=== PATIENT | male | born 1960 | race Caucasian/White ===

== ENCOUNTER 2016-10-07 16:17 | Emergency (ER) | payer OTHER ==
[2016-10-07 17:42] VITALS: BP 149/66; PULSE 79; RESP 18; TEMP 98.1; O2SAT 97
[2016-10-07] MEDS ORDERED: LISI40TA PO (17:42)
[2016-10-07] MEDS ORDERED: LURA40 PO (17:42)
[2016-10-07] MEDS ORDERED: ASPI-110 PO (17:42)
[2016-10-07] MEDS ORDERED: ESCI20TA PO (17:42)
[2016-10-07] MEDS ORDERED: BUSP30TA PO (17:42)
[2016-10-07] MEDS ORDERED: ALFU10TA2 PO (17:42)
[2016-10-07] MEDS ORDERED: PLAV75TA29 PO (17:42)
[2016-10-07] MEDS ORDERED: DOCU250C PO (17:42)
[2016-10-07] MEDS ORDERED: CYCL1TAB29 PO (17:42)
[2016-10-07] MEDS ORDERED: WELLTAB39 PO (17:42)
[2016-10-07] MEDS ORDERED: GABA600T PO (17:42)
[2016-10-07] MEDS ORDERED: HYDR12.56 PO (17:42)
[2016-10-07] MEDS ORDERED: ATOR40TA16 PO (17:42)
[2016-10-07] MEDS ORDERED: DOXY100C PO (18:48)
[2016-10-07] MEDS ORDERED: PRED20 PO (18:48)
[2016-10-07] MEDS ORDERED: DIAZEPAM 5 MG TAB PO ONE (19:00)
[2016-10-07] MEDS ORDERED: NICOTINE 14 MG/24 HR PATCH T-DERMAL ONE (19:00)
[2016-10-07] MEDS ORDERED: predniSONE 20 MG TAB PO ONE (19:00)
[2016-10-07] MEDS ORDERED: guaiFENesin E.R. 600 MG TAB PO ONE (19:00)
--- NOTE | 2016-10-07 19:00 | PD ---
HPI Chief Complaint: Psychiatric Symptoms Time Seen by Provider: 18:40 Travel History International Travel<30 days: No Contact w/Intl Traveler<30days: No Traveled to known affect area: No History of Present Illness HPI This is a 56-year-old male who presents under Gar act initiated by an outside emergency room physician. The patient was seen in the hospital in [place] yesterday for evaluation of a cough. He told the physician that he has been having suicidal thoughts, specifically he has had thoughts of walking in front of a truck. For this reason he was Gar acted. He was medically cleared at this facility then transferred here, accepted by psychiatrist Dr. Rodriguez. The patient reports that he has had a cough for 3 weeks. He reports a history of asthma, possibly COPD, tobacco use. I reviewed his records from the outside hospital. His lab work was notable for positive benzodiazepine/cannabinoids on drug screen, potassium was initially 2.9 yesterday, repeat potassium after treatment was 3.7 today. Chest x-ray revealed no pneumonia. He was given a dose of Levaquin this morning. He reports that he was given a shot of steroids yesterday. He was given breathing treatments. He is requesting currently nicotine patch, something help him sleep, nebulizer treatment. No other complaints. [facility] Social History Tobacco Use: Yes Substance Use: Yes Allergies-Medications (Allergen,Severity, Reaction): Coded Allergies: No Known Allergies (Unverified , 10/07/16) Reported Meds & Prescriptions Reported Meds & Active Scripts Active Prednisone 20 Mg Tab 20 Mg PO BID 5 Days Doxycycline Hyclate 100 Mg Cap 100 Mg PO BID Reported Alfuzosin ER 24 HR 10 Mg Tab 10 Mg PO DAILY Buspirone (Buspirone HCl) 30 Mg Tab 30 Mg PO BID Wellbutrin Xl 24 HR (Bupropion HCl) 300 Mg Tab 300 Mg PO DAILY Plavix (Clopidogrel Bisulfate) 75 Mg Tab 75 Mg PO DAILY Lisinopril 40 Mg Tab 40 Mg PO DAILY Hydrochlorothiazide 12.5 Mg Tab 12.5 Mg PO DAILY Escitalopram (Escitalopram Oxalate) 20 Mg Tab 20 Mg PO DAILY Aspirin 81 (Aspirin) 81 Mg Tabdr 81 Mg PO DAILY Atorvastatin (Atorvastatin Calcium) 40 Mg Tab 40 Mg PO HS Flexeril (Cyclobenzaprine HCl) 10 Mg Tab 10 Mg PO TID Gabapentin 600 Mg Tab 600 Mg PO TID Latuda (Lurasidone) 40 Mg Tab 40 Mg PO DAILY Docusate Sodium 250 Mg Cap 250 Mg PO BID Review of Systems Except as stated in HPI: all other systems reviewed are Neg Physical Exam Narrative GENERAL: Well-developed well-nourished male in no acute distress SKIN: Warm and dry. HEAD: Atraumatic. Normocephalic. EYES: Pupils equal and round. No scleral icterus. No injection or drainage. ENT: No nasal bleeding or discharge. Mucous membranes pink and moist. NECK: Trachea midline. No JVD. CARDIOVASCULAR: Regular rate and rhythm. No murmur appreciated. RESPIRATORY: No accessory muscle use. Coarse breath sounds with wheezing bilaterally. GASTROINTESTINAL: Abdomen soft, non-tender, nondistended. Hepatic and splenic margins not palpable. MUSCULOSKELETAL: No obvious deformities. No clubbing. No cyanosis. No edema. NEUROLOGICAL: Awake and alert. No obvious cranial nerve deficits. Motor grossly within normal limits. Normal speech. PSYCHIATRIC: Appropriate mood and affect; insight and judgment normal. Data Data Last Documented VS Vital Signs Date Time Temp Pulse Resp B/P Pulse Ox O2 Delivery O2 Flow Rate FiO2 10/07/16 17:42 98.1 79 18 149/66 97 Room Air Orders Diet Regular Basic (10/07/16 Dinner) Psych Screen (10/07/16 17:01) MDM Medical Decision Making Medical Screen Exam Complete: Yes Emergency Medical Condition: Yes Medical Record Reviewed: Yes Differential Diagnosis Depression, schizophrenia, bipolar disorder, acute psychosis, adjustment reaction, substance induced mood disorder Narrative Course This is a patient was seen at a hospital in [place] for a cough, he was Gar acted and transferred here for psychiatric evaluation. He was previously medically cleared. On examination he has coarse breath sounds with wheezing bilaterally. He has had a cough and wheezing for 3 weeks. He had a chest x- ray at the outside facility which was negative for pneumonia. He was given a dose of Levaquin this morning. There are no obvious prescriptions from this outside facility. Therefore the patient will be given prescriptions for doxycycline and prednisone. He will be given a dose of prednisone as well as DuoNeb therapy currently. He'll be given a dose of Valium and a nicotine patch. Mental health screening discussed with the patient. Psychiatric screen ordered. He is medically cleared for psychiatric disposition. Diagnosis Primary Impression: Bronchitis Additional Impression: Medical clearance for psychiatric admission Scripts Prednisone 20 Mg Tab20 Mg PO BID 5 Days Ref 0 Prov:Tc Howe MD 10/07/16 Doxycycline Hyclate 100 Mg [id number] Mg PO BID #20 CAP Ref 0 Prov:Tc Howe MD 10/07/16 Rubén Lal Oct 07, 2016 18:59
[2016-10-07] MEDS: RESP: ALBUTEROL 2.5 MG/IPRATROPIUM 0.5 MG NEB (SCH) INH (20:30)
[2016-10-07 22:14] VITALS: BP 110/58; PULSE 80; RESP 17; O2SAT 98
[2016-10-08 02:00] VITALS: BP 125/64; PULSE 61; RESP 17; O2SAT 95
--- NOTE | 2016-10-08 11:32 | PD.PSY.CON ---
Provisional Diagnosis Admission Date [place] I. Adjustment disorder with depressed mood and anxiety, benzodiazepine dependence [place] II. Deferred [place] III. CVA History of Present Illness Service Psychiatry Consult Requested By Primary Care Physician No Primary Care Physician HPI The patient is a 56-year-old man, domiciled with his daughter, unemployed, on SSI, with significant history of depression and anxiety, no previous psychiatric hospitalizations, no previous suicidal attempts, medical history of CVAs, who presents under Gar act initiated by an outside emergency room physician. The patient was seen in the hospital in [place] yesterday for evaluation of a cough. He told the physician that he has been having suicidal thoughts, specifically he has had thoughts of walking in front of a truck. For this reason he was Gar acted. He was medically cleared at this facility then transferred here, accepted by psychiatrist Dr. Rodriguez. On psychiatric evaluation today patient reports that he went yesterday for respiratory symptoms to the hospital, he asked for medication for anxiety, they refused to give him Xanax or Ativan. He became mad salty suicidal statement, he did not meant to kill himself. He says that he has too many reasons to live for, he says that his daughter has recently moved to his house and they have a lot of plans for the future. She denies depressive symptoms, he denies suicidal or homicidal ideation. Patient is focused and getting prescribed benzodiazepines in the ER, but his explained that he needs to discuss issues of prescription with outpatient doctor. He expresses understanding. Patient is oriented 3, no attention deficit, no gross cognitive impairment present. He reports a vocational use of marijuana and alcohol also cocaine. Review of Systems Constitutional: DENIES: Diaphoretic episodes, Fatigue, Fever, Weight gain, Weight loss, Chills, Dizziness, Change in appetite, Night Sweats Endocrine: DENIES: Heat/cold intolerance, Polydipsia, Polyuria, Polyphagia Eyes: DENIES: Blurred vision, Diplopia, Eye inflammation, Eye pain, Vision loss , Photosensitivity, Double Vision Ears, nose, mouth, throat: DENIES: Tinnitus, Hearing loss, Vertigo, Nasal discharge, Oral lesions, Throat pain, Hoarseness, Ear Pain, Running Nose, Epistaxis, Sinus Pain, Toothache, Odynophagia Respiratory: DENIES: Apneas, Cough, Snoring, Wheezing, Hemoptysis, Sputum production, Shortness of breath Cardiovascular: DENIES: Chest pain, Palpitations, Syncope, Dyspnea on Exertion , PND, Lower Extremity Edema, Orthopnea, Claudication Gastrointestinal: DENIES: Abdominal pain, Black stools, Bloody stools, Constipation, Diarrhea, Nausea, Vomiting, Difficulty Swallowing, Anorexia Musculoskeletal: COMPLAINS OF: Muscle aches, Back pain Hematologic/lymphatic: DENIES: Bruising, Lymphadenopathy Immunologic/allergic: DENIES: Eczema, Urticaria Neurologic: DENIES: Abnormal gait, Headache, Localized weakness, Paresthesias, Seizures, Speech Problems, Tremor, Poor Balance Psychiatric: DENIES: Anxiety, Confusion, Mood changes, Depression, Hallucinations, Agitation, Suicidal Ideation, Homicidal Ideation, Delusions Past Family Social History Coded Allergies: No Known Allergies (Unverified , 10/07/16) Active Scripts Prednisone 20 Mg Tab20 Mg PO BID 5 Days Ref 0 Prov:Tc Howe MD 10/07/16 Doxycycline Hyclate 100 Mg [id number] Mg PO BID #20 CAP Ref 0 Prov:Tc Howe MD 10/07/16 Reported Medications Alfuzosin ER 24 HR 10 Mg Tab10 Mg PO DAILY #30 TAB Ref 0 10/07/16 Buspirone 30 Mg Tab30 Mg PO BID Ref 0 10/07/16 Bupropion HCl ER 24 HR (Wellbutrin Xl 24 HR)300 Mg Ekr125 Mg PO DAILY Ref 0 10/07/16 Clopidogrel (Plavix)75 Mg Tab75 Mg PO DAILY #30 TAB Ref 0 10/07/16 Lisinopril 40 Mg Tab40 Mg PO DAILY #30 TAB Ref 0 10/07/16 Hydrochlorothiazide 12.5 Mg Tab12.5 Mg PO DAILY #30 TAB Ref 0 10/07/16 Escitalopram 20 Mg Tab20 Mg PO DAILY #30 TAB Ref 0 10/07/[address] (Aspirin 81)81 Mg Tabdr81 Mg PO DAILY Ref 0 10/07/16 Atorvastatin 40 Mg Tab40 Mg PO HS #30 TAB Ref 0 10/07/16 Cyclobenzaprine (Flexeril)10 Mg Tab10 Mg PO TID #90 TAB Ref 0 10/07/16 Gabapentin 600 Mg Blp034 Mg PO TID #90 TAB Ref 0 10/07/16 Lurasidone (Latuda)40 Mg Tab40 Mg PO DAILY #30 TAB Ref 0 10/07/16 Docusate Sodium 250 Mg [id number] Mg PO BID #30 CAP Ref 0 10/07/16 Physical Exam Vital Signs Vital Signs Date Time Temp Pulse Resp B/P Pulse Ox O2 Delivery O2 Flow Rate FiO2 10/08/16 02:00 61 17 125/64 95 Room Air 10/07/16 17:42 98.1 Mental Status Examination Appearance man, age appearing, calm and cooperative Speech: Unremarkable Orientation: x3 Memory: Unremarkable Thought Process: Logical Thought Content: Unremarkable Hallucination Type: None Suicidal Ideation: No Previous Suicide Attempts: No Homicidal Ideation: No Insight: Good Affect: Good Mood: Appropriate Motor Activity: Normal gait Assessment & Plan Problem List: (1) Adjustment disorder with mixed anxiety and depressed mood Assessment & Plan: On psychiatric evaluation patient does not present any evidence of depression, acute anxiety, salty or psychosis. Patient denies suicidal and homicidal ideation. During psychiatric evaluation patient is mostly focused in getting prescription of benzodiazepines. Does not meet criteria for psychiatric admission at this moment. Gar act will be lifted. ICD Code: F43.23 Assessment & Plan Estimated LOS: Jluis Peters MD Oct 08, 2016 11:32
== END 2016-10-08 09:47 | disposition home or self-care (01) ==
LOC: NEPJ 16:17
DX: R45.851 Suicidal ideations (principal); J40 Bronchitis, not specified as acute or chronic; J45.909 Unspecified asthma, uncomplicated; Z72.0 Tobacco use; Z79.02 Long term (current) use of antithrombotics/antiplatelets; Z79.82 Long term (current) use of aspirin; Z79.899 Other long term (current) drug therapy
CPT/HCPCS: 94640; 94664; 99285; J7512